=== PATIENT | male | born 1970 | race Caucasian/White ===

== ENCOUNTER 2017-03-27 12:53 | Emergency (ER) | payer MEDICAID ==
[~2017-03-27] VITALS: Ht 170.2 cm; Wt 78.0 kg
[~2017-03-27 12:53] MED LIST: QUET300T5 PO; REMERON PO; THORAZINE PO
[2017-03-27 13:07] VITALS: BP 130/78
== END 2017-03-27 14:08 | disposition home or self-care (01) ==
LOC: ED 14:02
DX: S83.92XA Sprain of unspecified site of left knee, initial encounter (principal); S83.91XA Sprain of unspecified site of right knee, initial encounter; F19.10 Other psychoactive substance abuse, uncomplicated; X50.3XXA Overexertion from repetitive movements, initial encounter; Y93.01 Activity, walking, marching and hiking; Y99.8 Other external cause status; Y92.89 Other specified places as the place of occurrence of the external cause
CPT/HCPCS: 99282

== ENCOUNTER 2017-04-02 23:31 | Emergency (ER) | payer MEDICAID ==
[~2017-04-02] VITALS: Ht 170.2 cm; Wt 75.8 kg
[2017-04-02 23:33] VITALS: BP 120/83
[2017-04-02] MEDS ORDERED: LORazepam 1MG TABLET ONE (23:57)
[2017-04-02] MEDS ORDERED: ONDANSETRON ODT 4 MG ONE (23:57)
[2017-04-03] MEDS ORDERED: LORazepam 1MG TABLET PO ONE
[2017-04-03] MEDS ORDERED: ONDANSETRON ODT 4 MG PO ONE
== END 2017-04-03 00:52 | disposition home or self-care (01) ==
LOC: ED 23:59
DX: R11.2 Nausea with vomiting, unspecified (principal); F41.1 Generalized anxiety disorder; Z88.0 Allergy status to penicillin; Z88.8 Allergy status to other drugs, medicaments and biological substances
CPT/HCPCS: 99284; Q0162

== ENCOUNTER 2017-11-01 10:34 | Emergency (ER) | payer MEDICAID ==
[~2017-11-01] VITALS: Ht 170.2 cm; Wt 83.1 kg
[~2017-11-01 10:34] MED LIST changes: +ALBU8.5H8 INH; +MOME220A10 INH; +OMEP20TA62 PO; +QUET400T4 PO; +[UNRECOGNIZED DRUG - OTHER] PO
[2017-11-01 11:40] LABS: MICROSCOPIC NOT IND
[2017-11-01 11:43] LABS: CULTURE INDICATED? NO
[2017-11-01 11:57] LABS: BASOPHILS # (AUTO) 0.05 x10^3/uL (0-0.1); BASOPHILS % (AUTO) 0 % (0-1); EOSINOPHILS # (AUTO) 0.37 x10^3/uL (0-0.4); EOSINOPHILS % (AUTO) 3 % (1-7); LYMPHOCYTES % (AUTO) 16 % (22-44); MD NO; MEAN CORPUSCULAR HEMOGLOBIN 28.3 pg (27.5-34.5); MEAN CORPUSCULAR HGB CONC 33.6 g/dL (33.2-36.2); MEAN CORPUSCULAR VOLUME 84.4 fL (81-97); MEAN PLATELET VOLUME 7.5 fL (7.4-10.4); MONOCYTES # (AUTO) 0.47 x10^3/uL (0.2-0.8); MONOCYTES % (AUTO) 4 % (2-9); NEUTROPHILS % (AUTO) 77 % (42-75); PLATELET COUNT 263 x10^3/uL (130-400); RED BLOOD COUNT 5.95 x10^6/uL (4.38-5.82); RED CELL DISTRIBUTION WIDTH 14.2 % (9.4-14.8)
[2017-11-01] MEDS ORDERED: MORPHINE SULFATE 4 MG/ML, 1ML ONE (11:58)
[2017-11-01] MEDS ORDERED: ONDANSETRON 2MG/ML, 2ML ONE (11:58)
[2017-11-01] MEDS ORDERED: SODIUM CHLORIDE 0.9% 1,000ML IV ONE (12:00)
[2017-11-01] MEDS ORDERED: ONDANSETRON 2MG/ML, 2ML IVPush ONE (12:00)
[2017-11-01] MEDS ORDERED: MORPHINE SULFATE 4 MG/ML, 1ML IVPush PRN (12:00)
[2017-11-01 12:09] LABS: ALBUMIN 4.1 g/dL (3.4-5.0); ANION GAP 9 mmol/L (5-15); CALCIUM 8.4 mg/dL (8.5-10.1); CHLORIDE 108 mmol/L (98-107)
[2017-11-01 14:30] VITALS: BP 138/82
== END 2017-11-01 14:33 | disposition home or self-care (01) ==
LOC: ED 12:07
DX: S39.012A Strain of muscle, fascia and tendon of lower back, initial encounter (principal); R10.9 Unspecified abdominal pain; E78.00 Pure hypercholesterolemia, unspecified; F20.9 Schizophrenia, unspecified; F32.9 Major depressive disorder, single episode, unspecified; F41.9 Anxiety disorder, unspecified; X58.XXXA Exposure to other specified factors, initial encounter; Y93.89 Activity, other specified; Y92.89 Other specified places as the place of occurrence of the external cause; Y99.8 Other external cause status
CPT/HCPCS: 36415; 74176; 80048; 81003; 82040; 85025; 96361; 96374; 96375; 99285; J2405; J7030

== ENCOUNTER 2017-12-10 23:34 | Emergency (ER) | payer MEDICAID ==
[~2017-12-10] VITALS: Ht 170.2 cm; Wt 78.7 kg
[2017-12-10 23:37] VITALS: BP 135/84
== END 2017-12-11 00:47 | disposition home or self-care (01) ==
LOC: ED 23:47
DX: F41.1 Generalized anxiety disorder (principal); F10.20 Alcohol dependence, uncomplicated; F19.10 Other psychoactive substance abuse, uncomplicated; E78.00 Pure hypercholesterolemia, unspecified; F20.9 Schizophrenia, unspecified; F32.9 Major depressive disorder, single episode, unspecified
CPT/HCPCS: 99284

== ENCOUNTER 2017-12-22 09:06 | Emergency (ER) | payer MEDICAID ==
[~2017-12-22] VITALS: Ht 170.2 cm; Wt 81.3 kg
[2017-12-22 09:08] VITALS: BP 120/81
[2017-12-22] MEDS ORDERED: ESOM20CA PO (09:28)
[2017-12-22] MEDS ORDERED: LIDOCAINE-MPF 1%, 5ML INFIL ONE (10:30)
== END 2017-12-22 10:27 | disposition home or self-care (01) ==
LOC: ED 10:15
DX: L03.012 Cellulitis of left finger (principal); L03.011 Cellulitis of right finger; F17.200 Nicotine dependence, unspecified, uncomplicated
CPT/HCPCS: 10061; 99284

== ENCOUNTER 2017-12-31 11:59 | Emergency (ER) | payer MEDICAID ==
[~2017-12-31] VITALS: Ht 170.2 cm; Wt 80.1 kg
[~2017-12-31 11:59] MED LIST changes: +ESOM20CA PO
[2017-12-31 12:00] VITALS: BP 139/86
[2017-12-31] MEDS ORDERED: SODIUM CHLORIDE FLUSH 10ML SYR IVF ONE (12:30)
[2017-12-31] MEDS ORDERED: CLINDAMYCIN PMX 600MG/50ML 50 ML IVPB ONE (12:30)
[2017-12-31] MEDS ORDERED: CLINDAMYCIN PMX 600MG/50ML 50 ML ONE (12:30)
[2017-12-31 12:45] LABS: BASOPHILS # (AUTO) 0.18 x10^3/uL (0-0.1); BASOPHILS % (AUTO) 2 % (0-1); EOSINOPHILS # (AUTO) 0.15 x10^3/uL (0-0.4); EOSINOPHILS % (AUTO) 1 % (1-7); LYMPHOCYTES # (AUTO) 1.56 x10^3/uL (1-3.4); LYMPHOCYTES % (AUTO) 13 % (22-44); MD NO; MEAN CORPUSCULAR HEMOGLOBIN 28.7 pg (27.5-34.5); MEAN CORPUSCULAR HGB CONC 34.2 g/dL (33.2-36.2); MEAN CORPUSCULAR VOLUME 83.9 fL (81-97); MEAN PLATELET VOLUME 7.3 fL (7.4-10.4); MONOCYTES # (AUTO) 0.38 x10^3/uL (0.2-0.8); MONOCYTES % (AUTO) 3 % (2-9); NEUTROPHILS # (AUTO) 9.42 x10^3/uL (1.8-6.8); NEUTROPHILS % (AUTO) 81 % (42-75); PLATELET COUNT 358 x10^3/uL (130-400); RED BLOOD COUNT 5.74 x10^6/uL (4.38-5.82); RED CELL DISTRIBUTION WIDTH 14.5 % (9.4-14.8)
[2017-12-31 12:53] LABS: ANION GAP 7 mmol/L (5-15); CALCIUM 8.5 mg/dL (8.5-10.1); CHLORIDE 106 mmol/L (98-107); CREATININE 0.77 mg/dL (0.7-1.3)
[2017-12-31] MEDS ORDERED: BACITRACIN ZINC OINT 500U/GM, 0.9 GM ONE (12:56)
== END 2017-12-31 13:44 | disposition home or self-care (01) ==
LOC: ED 12:54
DX: L03.012 Cellulitis of left finger (principal); L03.011 Cellulitis of right finger; E78.00 Pure hypercholesterolemia, unspecified; J45.909 Unspecified asthma, uncomplicated
CPT/HCPCS: 36415; 80048; 82040; 85025; 96365

== ENCOUNTER 2018-01-07 11:20 | Emergency (ER) | payer MEDICAID ==
[~2018-01-07] VITALS: Ht 172.7 cm; Wt 79.4 kg
[2018-01-07 11:47] VITALS: BP 116/74
[2018-01-07] MEDS ORDERED: KETOROLAC 30 MG/1 ML IM ONE (12:00)
== END 2018-01-07 12:29 | disposition home or self-care (01) ==
LOC: ED 12:18
DX: M25.561 Pain in right knee (principal); M25.562 Pain in left knee; E78.00 Pure hypercholesterolemia, unspecified
CPT/HCPCS: 99283

== ENCOUNTER 2018-06-28 04:16 | Emergency (ER) | payer MEDICAID ==
[~2018-06-28] VITALS: Ht 172.7 cm; Wt 90.1 kg
[2018-06-28 04:18] VITALS: BP 120/65
[2018-06-28] MEDS ORDERED: KETOROLAC 30 MG/1 ML ONE (04:44)
[2018-06-28] MEDS ORDERED: KETOROLAC 30 MG/1 ML IM ONE (05:00)
== END 2018-06-28 04:53 | disposition home or self-care (01) ==
LOC: ED 04:47
DX: B35.6 Tinea cruris (principal); E78.00 Pure hypercholesterolemia, unspecified; J45.909 Unspecified asthma, uncomplicated
CPT/HCPCS: 96372; 99283; J1885

== ENCOUNTER 2019-04-09 00:40 | Emergency (ER) | payer MEDICAID ==
[~2019-04-09] VITALS: Ht 172.7 cm; Wt 92.0 kg
--- NOTE | 2019-04-09 01:16 | NUR ---
PT. TO US VIA [facility]. AWARE OF NEED FOR UA. WILL AWAIT RETURN FOR ASSESSMENT.
[2019-04-09 01:43] LABS: BASOPHILS # (AUTO) 0.04 x10^3/uL (0-0.1); BASOPHILS % (AUTO) 0 % (0-1); EOSINOPHILS # (AUTO) 0.17 x10^3/uL (0-0.4); EOSINOPHILS % (AUTO) 1 % (1-7); LYMPHOCYTES # (AUTO) 1.72 x10^3/uL (1-3.4); LYMPHOCYTES % (AUTO) 13 % (22-44); MD NO; MEAN CORPUSCULAR HEMOGLOBIN 27.6 pg (27.5-34.5); MEAN CORPUSCULAR HGB CONC 33.1 g/dL (33.2-36.2); MEAN CORPUSCULAR VOLUME 83.5 fL (81-97); MONOCYTES # (AUTO) 0.76 x10^3/uL (0.2-0.8); MONOCYTES % (AUTO) 6 % (2-9); NEUTROPHILS # (AUTO) 10.28 x10^3/uL (1.8-6.8); NEUTROPHILS % (AUTO) 79 % (42-75); PLATELET COUNT 258 x10^3/uL (130-400); RED CELL DISTRIBUTION WIDTH 13.6 % (9.4-14.8)
[2019-04-09 01:53] LABS: ALBUMIN 4.2 g/dL (3.4-5.0); ANION GAP 6 mmol/L (5-15); CHLORIDE 105 mmol/L (98-107); CREATININE 0.91 mg/dL (0.7-1.3)
[2019-04-09] MEDS ORDERED: LEVOFLOXACIN 500 MG TABLET ONE (01:58)
[2019-04-09] MEDS ORDERED: LEVOFLOXACIN 500 MG TABLET PO ONE (02:00)
--- NOTE | 2019-04-09 02:07 | NUR ---
URINE COLLECTED AND SENT TO LAB. ASSESSMENT MADE. PT. C/O PAIN TO "MY PRIVATE AREA'S". X 3 DAYS. PAINFUL URINATION. DENIES N/V/D.
[2019-04-09 02:19] LABS: CULTURE INDICATED? YES; MICROSCOPIC INDICATED
[2019-04-09 02:50] VITALS: BP 126/78
== END 2019-04-09 02:51 | disposition home or self-care (01) ==
LOC: ED 01:29
DX: N45.1 Epididymitis (principal); N43.3 Hydrocele, unspecified; Z88.0 Allergy status to penicillin; Z88.1 Allergy status to other antibiotic agents; Z88.8 Allergy status to other drugs, medicaments and biological substances
CPT/HCPCS: 36415; 76870; 80048; 81001; 82040; 85025; 87086; 87147; 99284